=== PATIENT | male | born 1940 | race Caucasian/White ===

== ENCOUNTER 2022-11-24 10:45 | Emergency (ER) | payer MEDICARE | END 2022-11-24 11:55 | disposition home or self-care (01) | LOC: NAV ERS 10:45 | DX: M79.671 Pain in right foot (principal); M79.89 Other specified soft tissue disorders; I10 Essential (primary) hypertension; E78.00 Pure hypercholesterolemia, unspecified; Z87.891 Personal history of nicotine dependence; Z79.899 Other long term (current) drug therapy ==